=== PATIENT | female | born 1985 | race African-American/Black ===

== ENCOUNTER 2018-05-30 17:19 | Emergency (ER) | payer SELFPAY ==
[2018-05-30 18:29] VITALS: BP 132/79
--- NOTE | 2018-05-30 20:18 | ER Document Report ---
HPI - HPI Pain Level: 1 Context: Patient is a 33-year-old female complaining of right upper molar tooth pain 1 month. Reports the tooth cracked about 2 months ago. No swelling, no difficulty swallowing, no fever Associated Symptoms: None Exacerbated by: Food Relieved by: Denies Similar symptoms previously: No Recently seen / treated by doctor: No - ROS Systems Reviewed and Negative: Yes All other systems reviewed and negative Past Medical History - General Information source: Patient - Social History Smoking Status: Current Every Day Smoker Frequency of alcohol use: None Drug Abuse: None Lives with: Family Family History: Reviewed & Not Pertinent - Medical History Medical History: Negative Vertical Provider Document - CONSTITUTIONAL Agree With Documented VS: Yes Exam Limitations: No Limitations - INFECTION CONTROL TRAVEL OUTSIDE OF THE [place] IN LAST 30 DAYS: No - HEENT HEENT: Atraumatic, PERRLA Mouth Diagram: 1 - Fractured tooth. No gingival edema or abscess appreciated - NECK Neck: Normal Inspection, Supple - RESPIRATORY Respiratory: Breath Sounds Normal, No Respiratory Distress - CARDIOVASCULAR Cardiovascular: Regular Rate, Regular Rhythm - NEURO Level of Consciousness: Awake, Alert, Appropriate - DERM Integumentary: Warm, Dry Course - Vital Signs Vital signs: Temp Pulse Resp BP Pulse Ox 98.2 F 76 16 132/79 H 99 05/30/18 18:26 05/30/18 18:26 05/30/18 18:26 05/30/18 18:26 05/30/18 18:26 Discharge - Discharge Clinical Impression: Pain, dental Condition: Stable Disposition: HOME, SELF-CARE Instructions: Toothache ([facility]), Antibiotic Therapy ([facility]), Ultram ([facility]) Additional Instructions: Take meds as prescribed Follow-up with dental as possible for further evaluation and treatment You may use [id number] temporary filling to cover the fractured tooth Prescriptions: Amoxicillin 500 mg PO TID #21 tablet Tramadol HCl [Ultram 50 mg Tablet] 50 mg PO Q6H PRN #10 tablet PRN Reason: Referrals: RYAN CHRISTIANSEN MD [Primary Care Provider] - Follow up as needed
== END 2018-05-30 20:53 | disposition home or self-care (01) ==
LOC: ER 17:19
DX: K08.89 Other specified disorders of teeth and supporting structures (principal); F17.200 Nicotine dependence, unspecified, uncomplicated
CPT/HCPCS: 99282